=== PATIENT | male | born 1990 | race Two or more races ===

== ENCOUNTER 2023-10-08 19:34 | Emergency (ER) | payer OTHER ==
[~2023-10-08] VITALS: Ht 162.6 cm; Wt 77.1 kg
[2023-10-08] MEDS ORDERED: KETOROLAC TROMETHAMINE 10 MG TABLET PO PRN (20:45)
[2023-10-08] MEDS ORDERED: KETOROLAC TROMETHAMINE 10 MG TABLET PO ONE (21:00)
[2023-10-09] MEDS ORDERED: KETOROLAC TROMETHAMINE 10 MG TABLET PO ONE (20:45)
== END 2023-10-08 22:21 | disposition home or self-care (01) ==
LOC: ER 19:34
DX: S89.82XA Other specified injuries of left lower leg, initial encounter (principal); W18.39XA Other fall on same level, initial encounter; Y93.89 Activity, other specified; Y92.018 Other place in single-family (private) house as the place of occurrence of the external cause